=== PATIENT | male | born 1945 | race Caucasian/White ===

== ENCOUNTER 2018-11-20 08:46 | Day surgery (SDC) | payer OTHER ==
[2018-11-17 13:23] LABS: HEMATOCRIT 37.7 % (42-54); MEAN CORPUSCULAR HGB CONC 34.1 g/dL (32.0-36.0); MEAN CORPUSCULAR VOLUME 99.7 fL (79-99); PLATELET COUNT (AUTO) 210 K/uL (130-400); RED BLOOD CELL COUNT(AUTO) 3.78 MIL/uL (4.50-6.20); RED CELL DISTRIBUTION WIDTH 15.8 % (11.0-15.5); WHITE BLOOD COUNT (AUTO) 6.5 K/uL (4.8-10.8)
[2018-11-17 13:34] LABS: CREATININE 0.9 mg/dL (0.5-1.5); POTASSIUM 4.3 mmol/L (3.5-5.1)
[2018-11-17 13:37] LABS: INR 1.99 (0.85-1.15); PARTIAL THROMBOPLASTIN TIME 41.1 SEC (26.3-35.5); PROTHROMBIN TIME 20.6 SEC (9.6-11.6)
[2018-11-17 15:01] LABS: BAND NEUTROPHILS % (MANUAL) 2 % (0-2); EOSINOPHILS % (MANUAL) 2 % (1-6); LYMPHOCYTES % (MANUAL) 17 % (22-44); MAN.DIFF COMMENT-IMPRESSION MANUAL DIFFERENTIAL; MONOCYTES % (MANUAL) 10 % (2-9); SEGMENTED NEUTROPHILS % 69 % (40-70)
--- NOTE | 2018-11-19 14:26 | NUR ---
LABS INFORMED PANCHO URIAS OF ABNORMAL PT/INR/PTT. PER DR. BORREGO, PROCEED WITH PLANNED PROCEDURE.
[2018-11-20] VITALS (8 sets, daily range): BP systolic 110–146; BP diastolic 59–82
[~2018-11-20] VITALS: Ht 182.9 cm; Wt 113.2 kg
[~2018-11-20 08:46] MED LIST: ALBU90AE IH; ASCO500T9 PO; CYAN-52 PO; FINA5TAB41 PO; FOLI0.8T PO; MULT1TAB66 PO; TIOT4MIS5 IH; VITAMIN D3 PO; WARF4TAB72 PO
[2018-11-20 09:22] LABS: INR 1.78 (0.85-1.15); PROTHROMBIN TIME 18.5 SEC (9.6-11.6)
[2018-11-20] MEDS: SODIUM CHLORIDE 0.9% 1000ML 1,000 ML IV SCH ×2 (10:10→10:23)
[2018-11-20] MEDS ORDERED: LIDOCAINE HCL 2% 20ML ONE (11:50)
[2018-11-20] MEDS ORDERED: HEPARIN SODIUM 1000UNIT/ML 10ML VIAL ONE (11:50)
--- NOTE | 2018-11-20 11:53 | NUR ---
TSF PT. TSF TO CATH FOR PROCEDURE BY BED WITH SUNITA ROMO
[2018-11-20] MEDS ORDERED: MIDAZOLAM HCL 1 MG/ML 2ML VIAL ONE ×3 (12:23→13:11)
[2018-11-20] MEDS ORDERED: MEPERIDINE-PF 25 MG/ML SYG ONE ×3 (12:23→13:12)
[2018-11-20] MEDS ORDERED: RIVA20TA PO (14:11)
--- NOTE | 2018-11-20 17:21 | NUR ---
D/C PT LEFT VIA WHEELCHAIR IN PVT CAR WITH . RX SCRIPT GIVEN TO . NO BLEEDING, NO HEMATOMA, NO PAIN.
[2018-11-20] MEDS ORDERED: RIVAROXABAN 20 MG TABLET PO SCH (19:00)
== END 2018-11-20 17:31 | disposition home or self-care (01) ==
LOC: DAH 08:46
PROVIDERS: ATTEND Internal Medicine Cardiovascular Disease
DX: I48.3 Typical atrial flutter (principal); G47.33 Obstructive sleep apnea (adult) (pediatric); Z79.01 Long term (current) use of anticoagulants; Z79.899 Other long term (current) drug therapy; Z86.718 Personal history of other venous thrombosis and embolism; Z98.890 Other specified postprocedural states; Z87.891 Personal history of nicotine dependence; Z72.89 Other problems related to lifestyle; Z82.49 Family history of ischemic heart disease and other diseases of the circulatory system
CPT/HCPCS: 36415 ×2; 80048; 85025; 85610 ×2; 85730; 93005; 93613; 93621; 93653; A4606; A4649; C1730 ×2; C1732; C1894 ×2; J1644 ×2; J2175 ×3; J2250 ×3; J3490; J7030; 99156; 99157